=== PATIENT | male | born 1945 | race Caucasian/White ===

== ENCOUNTER 2018-08-08 16:21 | Observation (INO) ==
[2018-08-08 18:05] LABS: BASO# 0.02 X1000 (0.0-0.2); BASO% 0.2 % (0.0-0.8); EOS# 0.04 X1000 (0.0-0.7); EOS% 0.4 % (0.0-10.0); HEMATOCRIT 44.9 % (42.0-52.0); HEMOGLOBIN 14.4 g/dL (14.0-18.0); IMM GRAN# 0.01 X1000 (0.0-0.04); IMM GRAN% 0.1 % (0.0-0.5); LYMPH# 1.07 X1000 (1.2-3.4); MCH 29.1 PG (27-31); MCHC 32.1 g/dL (33-37); MCV 90.9 FL (81-99); MONO# 0.79 X1000 (0.11-0.59); MONO% 8.1 % (1.7-9.3); MPV 9.9 FL (7.4-10.4); NEUT% 80.2 % (42.2-75.2); PLT 200 X1000 (130-400); RBC 4.94 XMIL (4.7-6.1); RDW 13.5 % (11.5-14.5); WBC 9.73 X1000 (4.8-10.8)
[2018-08-08 18:44] LABS: INR 1.03
[2018-08-08 18:45] LABS: PTT 32.5 Seconds (22.3-41.8)
[2018-08-08 19:01] LABS: CALCIUM 9.9 mg/dL (8.8-10.2); CREATININE 1.2 mg/dL (0.7-1.2); POTASSIUM 4.6 mmol/L (3.5-5.1)
[2018-08-08] MEDS ORDERED: LOPRESSOR PO ONE (19:10)
--- NOTE | 2018-08-08 19:12 | PROVIDER DOCUMENTATION ---
This chart was entered by Catherine Sullivan Scribe, acting as scribe for Jasson Perez MD. HPI-Musculoskeletal Pain/Inj - GENERAL Source: patient, family (brother) - HX OF PRESENT ILLNESS-MUSKULOSKELTAL Quality of Pain: reports: aching Severity in ED: moderate Onset/Duration: last night Timing: still present Modifying Factors: worse with: movement, palpation, other (deep breathing) Any recent injury?: Yes (fell at home) Locality of Occurance: Home Similar Symptoms Previously?: No Recently seen or treated by another doctor?: No - FALL INJURY Location of Pain/Injury: reports: other (rt ribs) Reason for Fall: reports: tripped (over rug) Symptoms prior to fall:: reports: none Loss of Consciousness: no loss of consciousness Injury Associated Symptoms: reports: other (rib pain). denies: back/neck pain, chest pain, dizziness, nausea, shortness of breath, vomiting, weakness <Jasson Perez - Last Filed: 08/08/18 19:26> <Esvin Mcdonald - Last Filed: 08/09/18 00:16> - GENERAL Chief Complaint: Rib Pain Stated Complaint: FALL / SIDE PAIN Time Seen by Provider: 08/08/18 17:16 - HX OF PRESENT ILLNESS-MUSKULOSKELTAL Nature of Presenting Problem: 73 yowm presents to the ed with his brother. pt sts he fell last night when he tripped over a rug landing on his rt side. pt sts deep breathing, movement and palpation makes worse (Catherine Sullivan) 73 yowm presents to the ed with his brother. pt sts he fell last night when he tripped over a rug landing on his rt side. pt sts deep breathing, movement and palpation makes worse (Jasson Perez) Review of Systems - Adult - REVIEW OF SYSTEMS - ADULT Constitutional: denies: chills, fever Eyes: denies: blurred vision, double vision Ears, Nose, Mouth & Throat: reports: no symptoms reported Cardiovascular: reports: see HPI, other (ribs) Respiratory: denies: cough, shortness of breath, wheezing Gastrointestinal: denies: abdominal pain, diarrhea, nausea, vomiting Genitourinary: reports: no symptoms reported Musculoskeletal: reports: see HPI, other (rib pain). denies: back pain, neck pain Integumentary: reports: no symptoms reported Neurological: reports: no symptoms reported Psychiatric: reports: no symptoms reported Endocrine: reports: no symptoms reported Hematologic/Lymphatic: reports: no symptoms reported Allergic/Immunologic: reports: no symptoms reported All Other Systems: Reviewed and Negative <Jasson Perez - Last Filed: 08/08/18 19:26> Past History - Adult - PAST MEDICAL HISTORY-ADULT Review of Records: reports: Old Records Reviewed, Nursing Assessment Review, Medications Reviewed, Social history reviewed & non-contributory. Major Childhood Illnesses: reports: denies history Cardiovascular: reports: HTN Respiratory: reports: denies history Gastrointestinal: reports: denies history Genitourinary: reports: denies history Musculoskeletal: reports: denies history Neurological: reports: denies history Psychiatric: reports: denies history Endocrine/Immune: reports: Diabetes Diabetes Type: Type 2 Diabetes controlled by:: PO Meds Other Conditions: reports: deaf/hard of hearing - PRIOR SURGERIES/PROCEDURES Surgical/Procedure History: reports: other (eye sx) - IMMUNIZATION STATUS Childhood Immunizations: See Nurse Assessment Flu Vaccine: See Nurse Assessment - FAMILY HISTORY Family History: reviewed, not pertinent - SOCIAL HISTORY Smoking: denies Substance Use: denies Alcohol Use Frequency: never Living Situation: alone <Jasson Perez - Last Filed: 08/08/18 19:26> Physical Exam-Injury Related - Physical Exam-Injury Related Initial Vital Signs Reviewed: Yes (tachy 119 BP 143/104) General Appearance: alert, no apparent distress Eyes: PERRL/EOMI, pink conjunctivae Head, Ears, Nose, Mouth & Throat: moist mucous membranes, TMs normal, pharynx normal, dental decay Neck: non-tender, full range of motion, supple, normal inspection Respiratory: lungs clear, normal breath sounds, no respiratory distress, no accessory muscle use, rib tenderness, tenderness (rt ribs) Cardiovascular: irregularly irregular (119) Chest/Breast: tenderness (rt ribs) Abdominal Exam: normal bowel sounds, non tender, soft Male Genitalia: deferred Rectal Exam: deferred Hemoccult Exam: deferred Lymphatic: no adenopathy Back Exam: normal inspection, no CVA tenderness, no vertebral tenderness Extremity: normal range of motion, non-tender, normal gait, normal inspection Integumentary: normal color, warm/dry Neurologic: grossly normal, no motor/sensory deficits Psych/Mental Status: normal mood/affect, normal thought content, normal thought process, oriented x 3 - Glascow Coma Score Best Eye Response (Migue): (4) open spontaneously Best Verbal Response (Migue): (5) oriented Best Motor Response (Migue): (6) obeys commands Migue Total: 15 <Jasson Perez - Last Filed: 08/08/18 19:26> Progress - PLAN OF CARE/RESULTS Result Diagrams: 08/08/18 17:53 08/08/18 17:53 - REASSESSMENT Reassessment #1 Time Reassessed: 17:59 Status: unchanged Reassessment Comment: pt is in no distress - EKG 1 Time of EKG reading by physician:: 19:07 EKG Read and Signed by:: Jasson Perez EKG Interpretation (*Must complete 3 of following elements*): Abnormal Rate: 127 Rhythm: AFIB RVR Romney: normal QRS: LVH IA Interval: normal ST Wave: non-specific ST changes - XRAY 1 XRAY: Right XRAY Study: Ribs Impression: See EMR Report - CHANGE OF SHIFT REPORT (ED Provider) Report Given and Care Transferred to:: DR MCDONALD Time of Transfer: 19:12 Items Pending: Labs <Jasson Perez - Last Filed: 08/08/18 19:26> - PLAN OF CARE/RESULTS Result Diagrams: 08/08/18 17:53 08/08/18 17:53 <Esvin Mcdonald - Last Filed: 08/09/18 00:16> - PLAN OF CARE/RESULTS Progress/Plan/Lab Results: Vital Signs - 8 hr 08/08/18 16:32 08/08/18 19:36 08/08/18 20:22 Temperature 98.8 F Pulse Rate 119 H 119 H 106 H Respiratory Rate 18 16 16 Blood Pressure 145/104 166/122 146/109 O2 Sat by Pulse Oximetry 97 97 93 L 08/08/18 20:24 08/08/18 20:28 Temperature Pulse Rate 103 H 95 H Respiratory Rate 16 16 Blood Pressure 155/107 128/89 O2 Sat by Pulse Oximetry 93 L 95 Laboratory Results - last 24 hr 08/08/18 08/08/18 08/08/18 17:53 17:53 17:53 WBC RBC Hgb Hct MCV MCH MCHC RDW Std Deviation Plt Count MPV Immature Gran % (Auto) Neut % (Auto) Lymph % (Auto) Loving % (Auto) Eos % (Auto) Baso % (Auto) Immature Gran # (Auto) Neut # (Auto) Lymph # (Auto) Loving # (Auto) Eos # (Auto) Baso # (Auto) PT INR PTT (Actin FS) Sodium 141 Potassium 4.6 Chloride 101 Carbon Dioxide 27 Anion Gap 13 BUN 21 Creatinine 1.2 Estimated GFR/1.73 m2 60 BUN/Creatinine Ratio 18 Glucose 167 H Calculated Osmolality 288 Calcium 9.9 Creatine Kinase 373 H Creatine Kinase Index 1.1 CK-MB (CK-2) 4.22 Troponin T < 0.010 TSH 3.44 Urine Opiates Screen Ur Oxycodone Screen Urine Methadone Screen U Propoxyphene Qual Ur Barbituates Screen Ur Tricyclics Screen Ur Phencyclidine Scrn Ur Amphetamines Screen U Methamphetamines Scrn U Benzodiazepines Scrn Urine Cocaine Screen U Cannabinoids Screen 08/08/18 08/08/18 08/08/18 17:53 17:53 18:58 WBC 9.73 RBC 4.94 Hgb 14.4 Hct 44.9 MCV 90.9 MCH 29.1 MCHC 32.1 L RDW Std Deviation 13.5 Plt Count 200 MPV 9.9 Immature Gran % (Auto) 0.1 Neut % (Auto) 80.2 H Lymph % (Auto) 11.0 L Loving % (Auto) 8.1 Eos % (Auto) 0.4 Baso % (Auto) 0.2 Immature Gran # (Auto) 0.01 Neut # (Auto) 7.80 H Lymph # (Auto) 1.07 L Loving # (Auto) 0.79 H Eos # (Auto) 0.04 Baso # (Auto) 0.02 PT 14.0 INR 1.03 PTT (Actin FS) 32.5 Sodium Potassium Chloride Carbon Dioxide Anion Gap BUN Creatinine Estimated GFR/1.73 m2 BUN/Creatinine Ratio Glucose Calculated Osmolality Calcium Creatine Kinase Creatine Kinase Index CK-MB (CK-2) Troponin T TSH Urine Opiates Screen NONE DETECTED Ur Oxycodone Screen NONE DETECTED Urine Methadone Screen NONE DETECTED U Propoxyphene Qual NONE DETECTED Ur Barbituates Screen NONE DETECTED Ur Tricyclics Screen NONE DETECTED Ur Phencyclidine Scrn NONE DETECTED Ur Amphetamines Screen NONE DETECTED U Methamphetamines Scrn NONE DETECTED U Benzodiazepines Scrn NONE DETECTED Urine Cocaine Screen NONE DETECTED U Cannabinoids Screen NONE DETECTED Orders Category Date Time Status Admit - [facility] Routine AdmDCTranf 08/08/18 20:25 Active Activity - Strict Bedrest ORDERED Care 08/08/18 20:25 Active Cardiac Monitoring DIRECTED Care 08/08/18 17:47 Active Neurological Check Q2H Care 08/08/18 20:25 Active Nursing- MD Consult Request ROUTINE Care 08/08/18 20:00 Active Resuscitation Status Routine Care 08/08/18 20:25 Ordered Saline Loc NOW Care 08/08/18 17:46 Completed Saline Loc NOW Care 08/08/18 19:57 Active Vital Signs Order Q 4-HR ASSESS Care 08/08/18 20:25 Active Z-Document. for Tele Applied ORDERED Care 08/08/18 20:26 Active Physician/Provider Consults Routine Cons 08/08/18 20:00 Ordered NPO Diet 08/08/18 20:26 Active RIBS UNILAT W/PA CHEST RIGHT [RAD] Stat Exams 08/08/18 17:45 Completed BMP [BASIC METABOLIC PANEL] [CHEM] Stat Lab 08/08/18 17:53 Completed CBC WITH ELECTRONIC DIFF [HEME] Stat Lab 08/08/18 17:53 Completed CK PROFILE [SP CHEM] Stat Lab 08/08/18 17:53 Completed MAGNESIUM [CHEM] Stat Lab 08/08/18 23:33 Completed PROTIME WITH INR [COAG] Stat Lab 08/08/18 17:53 Completed PTT [COAG] Stat Lab 08/08/18 17:53 Completed TROPONIN T Stat Lab 08/08/18 17:53 Completed TROPONIN T Stat Lab 08/08/18 23:33 Completed TSH Stat Lab 08/08/18 17:53 Completed URINE DRUG SCREEN PL Stat Lab 08/08/18 18:58 Completed Diltiazem [Cardizem] Med 08/08/18 19:54 Discontinued 15 mg IV NOW ONE Diltiazem [Cardizem] Med 08/08/18 20:30 Discontinued 30 mg PO Q6H Metoprolol [Lopressor] Med 08/08/18 19:10 Discontinued 25 mg PO NOW ONE Morphine Med 08/08/18 20:25 Discontinued 2 mg IV Q2H PRN PRN Morphine Med 08/08/18 19:58 Discontinued 4 mg IV NOW ONE Ondansetron [Zofran] Med 08/08/18 19:58 Discontinued 4 mg IV NOW ONE Ondansetron [Zofran] Med 08/08/18 20:25 Discontinued 4 mg IV Q4H PRN PRN Oxygen Device Routine Oth 08/08/18 20:26 Completed Telemetry [OM.EQ] Routine Oth 08/08/18 20:25 Active EKG [EKG] Stat Ther 08/08/18 17:46 Ordered Transfer/Admit Order [TRANSFER] Routine Transfer 08/08/18 20:28 Completed Departure <Jasson Perez - Last Filed: 08/08/18 19:26> - Departure Date of Disposition Decision: 08/08/18 Time of Disposition Decision: 20:30 Certified Medical Emergency: Emergent - Critical Care Note This patient required my direct & personal management of CC.: Yes <Esvin Mcdonald - Last Filed: 08/09/18 00:16> - Departure DIAGNOSIS: Atrial fibrillation with RVR Multiple rib fractures Qualifiers: Encounter type: initial encounter Fracture type: closed Laterality: right Qualified Code(s): S22.41XA - Multiple fractures of ribs, right side, initial encounter for closed fracture Disposition: ADMITTED INPATIENT 09 Condition: Stable Attestation - Physician/ MU Attestation Patient care was provided by Advanced Practice Provider:: No The physician spent face to face time with patient:: Yes Advanced Practice Provider documentation review:: Supervising physician onsite and consulted in the evaluation and care of this patient. The physician did have a face to face encounter with the patient. <Esvin Mcdonald - Last Filed: 08/09/18 00:16> This chart was documented by the indicated scribe, (Catherine Sullivan Scribe) and accurately reflects the services I performed and decisions made by me, Jasson Perez MD, as attested by the provider's signature.
--- NOTE | 2018-08-08 19:15 | Diag Imaging Result Doc PS360 ---
EXAM: RIBS UNILAT W/PA CHEST RIGHT INDICATION: fall TECHNIQUE: 5 views COMPARISON: None. FINDINGS: There are fractures involving the posterior aspect of the second, third, and fourth ribs on the right with only minimal displacement. No pneumothorax or pleural fluid collection is identified. The lungs appear to be clear. The cardiac silhouette is prominent. Central vasculature is unremarkable. IMPRESSION: Fractures of the posterior aspect of the second, third, and fourth ribs on the right as described. Electronically signed by Matthew Lipscomb 08/08/2018 7:13 PM
[2018-08-08 19:45] LABS: CK INDEX 1.1 (0.0-2.5); CK-MB 4.22 ng/mL (0.0-5.0)
[2018-08-08] MEDS ORDERED: CARDIZEM IV ONE (19:54)
[2018-08-08 19:57] LABS: UR AMPHETAMINES QUAL NONE DETECTED (NONE DETECT); UR BARBITUATES QUAL NONE DETECTED (NONE DETECT); UR BENZODIAZEPIN QUAL NONE DETECTED (NONE DETECT); UR CANNABINOIDS QUAL NONE DETECTED (NONE DETECT); UR COCAINE QUAL NONE DETECTED (NONE DETECT); UR METHADONE QUAL NONE DETECTED (NONE DETECT); UR METHAMPHETAMINE QUAL NONE DETECTED (NONE DETECT); UR OPIATES QUAL NONE DETECTED (NONE DETECT); UR OXYCODONE QUAL NONE DETECTED (NONE DETECT); UR PCP QUAL NONE DETECTED (NONE DETECT); UR PROPOXYPHENE QUAL NONE DETECTED (NONE DETECT); UR TCA QUAL NONE DETECTED (NONE DETECT)
[2018-08-08] MEDS ORDERED: MORPHINE IV ONE (19:58)
[2018-08-08] MEDS ORDERED: ZOFRAN IV ONE (19:58)
[2018-08-08] MEDS ORDERED: ZOFRAN IV PRN (20:25)
[2018-08-08] MEDS ORDERED: MORPHINE IV PRN (20:25)
[2018-08-08] MEDS ORDERED: CARDIZEM PO SCH (20:30)
[2018-08-09] MEDS ORDERED: NORCO-7.5 PO PRN (07:28)
[2018-08-09] MEDS ORDERED: LOPRESSOR PO ONE (07:45)
[2018-08-09 07:51] VITALS: BP 137/95
--- NOTE | 2018-08-09 08:38 | EKG Report ---
Test Performed on : 08/08/2018 7:07:18 PM Test Reason : A FIB Blood Pressure : / mmHG Vent. Rate : 127 BPM Atrial Rate : 150 BPM P-R Int : 000 ms QRS Dur : 088 ms QT Int : 362 ms P-R-T Axes : 000 -26 -63 degrees QTc Int : 526 ms Atrial fibrillation. with rapid ventricular response. Minimal voltage criteria for LVH, may be normal variant ST & T wave abnormality, consider anterior ischemia Abnormal ECG No previous ECGs available Unconfirmed Result
--- NOTE | 2018-08-09 08:54 | Diag Imaging Result Doc PS360 ---
EXAM: CHEST-PORTABLE INDICATION: follow up TECHNIQUE: One view COMPARISON: 08/08/2018 FINDINGS: Rib fractures on the right are again noted. Otherwise, the lungs appear to be grossly clear. No new consolidation is identified. Cardiac silhouette is stable. There is no evidence of pneumothorax. IMPRESSION: Stable chest. Electronically signed by Matthew Lipscomb 08/09/2018 8:52 AM
--- NOTE | 2018-08-09 08:55 | EKG Report ---
Test Performed on : 08/09/2018 08:50:36 AM Test Reason : afib Blood Pressure : / mmHG Vent. Rate : 100 BPM Atrial Rate : 129 BPM P-R Int : 000 ms QRS Dur : 092 ms QT Int : 322 ms P-R-T Axes : 000 -30 -20 degrees QTc Int : 415 ms Atrial fibrillation. Left axis deviation Incomplete right bundle branch block Minimal voltage criteria for LVH, may be normal variant Abnormal ECG When compared with ECG of 08-AUG-2018 19:07, (Unconfirmed) T wave inversion less evident in Inferior leads T wave inversion less evident in Anterior leads Confirmed by Carlos Kingston MD ([id number]) on 08/11/2018 9:46:24 AM
--- NOTE | 2018-08-09 10:06 | HISTORY AND PHYSICAL ---
DATE AND TIME: 08/09/2018 at 9:26 CHIEF COMPLAINT: Fall with rib pain. HISTORY OF PRESENT ILLNESS: Mr. Hernandez is a pleasant 73-year-old male with a possible learning disability. He cannot give me much by the way of history. He knows he takes 3 medications at home; he only knew them by color. He was brought in by his brother who is not currently in the hospital, but he states he will be here later today. He came to the ED because of a trip and a fall on a rug. Chest x-ray showed fractures of the posterior aspect of the second, third, and fourth ribs. He was also found to be in atrial fibrillation with RVR. He was given one dose of IV Cardizem, converted back to paroxysmal atrial fibrillation. The patient still remains in atrial fibrillation and a rate in the 110s. He denies feeling any palpitations. He still complains of some slight pain with movement on the right. He denies chest pain, shortness of breath, nausea, vomiting, diarrhea, headache, fever or chills. [facility] We will obtain an echocardiogram, try to get his home medications reconciled. We will continue with pain control. PAST MEDICAL HISTORY: Essentially unknown. The patient is not familiar with his history. He knows he takes 3 types of pills by color, probable paroxysmal atrial fibrillation. PAST SURGICAL HISTORY: Right eye surgery. SOCIAL HISTORY: The patient lives in [place] by himself. He has a brother who looks after him. FAMILY HISTORY: Unknown. HOME MEDICATIONS: Not reconciled. ALLERGIES: No known drug allergies. PHYSICAL EXAMINATION: VITAL SIGNS: Temperature is 98, heart rate 98, respiratory rate 16, blood pressure 137/95, O2 saturation is 100% on 2 L nasal cannula. GENERAL: Mr. Hernandez is a pleasant 73-year-old male who is sitting up in the bed in no acute distress. HEENT: Atraumatic and normocephalic. PERRL. NECK: Supple. Trachea midline. CARDIOVASCULAR: Irregular rhythm. No murmurs, rubs or gallops noted. No lower extremity edema. No JVD. PULMONARY: Bilateral breath sounds clear to auscultation. No rales, rhonchi or wheezes. He is tender to palpation on the right side. GASTROINTESTINAL: Soft, nontender and nondistended. Positive bowel sounds in 4 quadrants. SKIN: Warm, dry and intact. NEUROLOGICAL: The patient is alert and oriented, follows commands. Moves all extremities. DIAGNOSTIC DATA: Chest x-ray shows fractures to the posterior aspect of the second, third, and fourth ribs on the right. Initial EKG showed atrial fibrillation with RVR. Followup EKG shows atrial fibrillation at a rate of 100 beats per minute. White count is 9, hemoglobin and hematocrit of 14 and 44, platelet count 200. Sodium is 141, potassium 4.6, BUN is 21, creatinine 1.2, blood glucose is 167, magnesium 1.9. CK is 373. Two sets of negative cardiac enzymes. TSH is 344. Toxicology screen was negative. ASSESSMENT AND PLAN: 1. Mechanical fall at home. Per patient report, no loss of consciousness. He does have rib fractures on the right to the posterior aspect of the second, third, and fourth rib. We will continue with pain management, aggressive pulmonary toilet. Turn, cough, deep breathe and incentive spirometry q.1 hour while awake. We will have staff educate and do it q.4 hours with him. 2. Atrial fibrillation with rapid ventricular response. Possibly chronic atrial fibrillation. The patient was given one dose of IV Cardizem push in the ED. He is now atrial fibrillation in the 110s. Cardiac enzymes have been negative. We will continue with p.o. metoprolol. Check an echocardiogram. 3. Probable learning disability. This is unknown. The patient states he lives alone. He has a brother who looks after him. He knows he takes 3 home medications at home. He knows them by color but does not know what they are for and does not know much by the way of his history. We will have [employer] Server Engineer onboard. 4. Further recommendations to follow physician evaluation, laboratory and diagnostic data. Dictated by SADE Penny for Calixto Porter MD cc: MD Luis Borrego DO
[2018-08-09] MEDS ORDERED: LOPRESSOR PO SCH ×2 (11:30→21:00)
[2018-08-09 11:38] LABS: HEMATOCRIT 42.1 % (42.0-52.0); HEMOGLOBIN 13.2 g/dL (14.0-18.0); MCH 29.2 PG (27-31); MCHC 31.4 g/dL (33-37); MCV 93.1 FL (81-99); MPV 9.6 FL (7.4-10.4); RBC 4.52 XMIL (4.7-6.1); RDW 13.6 % (11.5-14.5); WBC 8.85 X1000 (4.8-10.8)
[2018-08-09 11:58] LABS: ALBUMIN 3.7 g/dL (3.5-5.0); CALCIUM 9.2 mg/dL (8.8-10.2); CREATININE 1.2 mg/dL (0.7-1.2); POTASSIUM 4.6 mmol/L (3.5-5.1); TOTAL BILIRUBIN 1.9 mg/dL (0.20-1.00); TOTAL PROTEIN 6.5 g/dL (6.3-8.3)
--- NOTE | 2018-08-09 22:38 | ECHO REPORT ---
ORDER DATE: 08/09/2018 INDICATION: Atrial fibrillation. FINDINGS: 1. The right atrium appears normal in size at 3.6 cm. 2. Mild tricuspid regurgitation. RV systolic pressure of 31. 3. Normal RV size and systolic function. 4. Mild pulmonic insufficiency. 5. Moderate left atrial enlargement with a dimension of 4.9 cm. 6. No mitral prolapse. Mild mitral regurgitation. 7. Normal LV size, end-diastolic dimension of 4.7. Mild left ventricular hypertrophy with a posterior and interventricular septal wall thickness of 1.2 cm each. LV systolic function appears to be normal at 60%. There is a suggestion of possible mild hypokinesis in the basal to mid inferior septum. This is a somewhat difficult visualization. Definity echo contrast was used. 8. The aortic valve does not appear to be stenotic. There is mild insufficiency with no stenosis. 9. There is dilatation of the aorta with a dimension of 4.5 cm in the ascending thoracic aorta. 10. No pericardial effusion seen. 11. The patient appears to be in atrial fibrillation during this study. cc: MD Calixto Estrada MD
--- NOTE | 2018-08-10 09:30 | DISCHARGE SUMMARY ---
ADMISSION DATE: 08/08/2018 DISCHARGE DATE: 08/09/2018 DISCHARGE ADDENDUM/HISTORY AND PHYSICAL ATTESTATION: The patient came in status post fall and has sustained multiple rib fractures. In the interim, he had atrial fibrillation with RVR, and he was admitted for that, although the documented heart rates were never more than 119. In any case, the patient was admitted for atrial fibrillation with RVR. He was rate controlled. I cannot tell based on his home medications that he takes a chronic rate-controlling agent. The patient has intellectual impairment and is just really not able to complete much of his information. Now, the brother, who is a caregiver, states that atrial fibrillation is known. Dr. Damon, his PCP, is primarily managing that. He is supposed to be on Coumadin, but he has stopped taking it because he is due to get eye surgery. He had one eye done; he is going to get the other eye done. He has been off anticoagulation from that standpoint. In any case, the patient's heart rate is stable, 90s to 100s. We put him on Lopressor, which I think is a good choice, and we are going to continue that as an outpatient; probably 50 mg XL daily and, then, we will give him some pain medication. On exam, he looks well. He does have very injected conjunctiva. No major pain. Heart beat is irregular regular, so we felt stable for discharge. His home medicines have not been verified. Now per his outpatient pharmacy though, he is on 1. Irbesartan 150. 2. Dorzolamide. 3. Glimepiride 2 maybe 3 times a day. 4. Metformin is 500 b.i.d. 5. Warfarin 4 daily. But, again, he is not taking that right now. We will discharge him on Toprol-XL 50 mg daily and [place] 7.5 p.o. q.6 hours p.r.n. pain. He can follow up with Dr. Damon, and I would recommend followup with the welfare eligibility worker. We will try to set that up too. Echocardiogram has been pursued. His brother states he has had an echocardiogram in the last 6 to 8 months which is completed in their office. cc: MD Luis Borrego, DO [facility]
== END 2018-08-09 13:07 | disposition home or self-care (01) ==
LOC: P.MEDSURG 16:21 → P.ED 16:21 → SUATTDRO 21:05
PROVIDERS: ADMIT Internal Medicine; ATTEND Internal Medicine
CPT/HCPCS: 71010; 71045; 71101; 80048; 80053; 80104; 80301; 80305; 82550; 82553; 83735; 84443; 84484; 85025; 85027; 85610; 85730; 93005; 93010; 93306; 94761; 94799; 96374; 96375; 99285; A9270; C8929; G0431; G0434; G0477; J2270; J2405; Q9957